=== PATIENT | female | born 1970 | race Caucasian/White ===

== ENCOUNTER → 2019-10-16 | Outpatient (CLI) | payer OTHER ==
--- NOTE | 2019-10-16 12:55 | RAD ---
3 views right elbow 10/16/2019 12:00 AM Indication: Reason: right elbow pain, no known injury, repetive workouts more intense / Spl. Instructions: / History: Comparison: None Findings: There is no acute fracture or dislocation. Articular surfaces are uninterupted and smooth. There is no fat-pad displacement or other evidence of joint effusion. Soft tissues are unremarkable. Impression: No evidence of acute osseous abnormality. Electronically signed by: Alex Leal MD (10/16/2019 12:52 PM) [id number]
== END ==
LOC: DXRAD 12:31
PROVIDERS: ATTEND Physician Assistant
DX: M25.521 Pain in right elbow (principal)
CPT/HCPCS: 73080